=== PATIENT | male | born 1955 | race Two or more races ===

== ENCOUNTER 2024-10-26 08:59 | Day surgery (SDC) | payer MEDICARE, BC ==
[~2024-10-26] VITALS: Ht 190.5 cm; Wt 90.7 kg
[2024-10-26] MEDS ORDERED: BUPIVACAINE 0.5 % PF 150 MG/30 ML VIAL ONE (10:05)
[2024-10-26] MEDS ORDERED: LIDOCAINE 1%-EPI 1:100,000 20 ML VIAL ONE (10:05)
[2024-10-26] MEDS ORDERED: LIDOCAINE 1% INJ 50 ML MDV IJ ONE (10:05)
[2024-10-26] MEDS ORDERED: VANCOMYCIN 1 GM VIAL ONE (10:05)
[2024-10-26] MEDS ORDERED: MINERAL OIL 10 ML VIAL MC ONE (10:09)
[2024-10-26] MEDS ORDERED: FENTANYL PF 100MCG/2ML AMPUL ONE (10:59)
[2024-10-26 11:25] VITALS: BP 160/83; TEMP 98.3; O2SAT 99
[2024-10-26 12:00] VITALS: BP 160/83; TEMP 97.7; O2SAT 99
[2024-10-26] MEDS ORDERED: POTA-10 PO (15:42)
[2024-10-26] MEDS ORDERED: AMLO-213 PO (15:42)
[2024-10-26] MEDS ORDERED: METO-357 PO (15:42)
[2024-10-26] MEDS ORDERED: EMPA25TA PO (15:42)
[2024-10-26] MEDS ORDERED: DAPA10TA PO (15:42)
[2024-10-26] MEDS ORDERED: SEMA0.25 SQ (15:42)
[2024-10-26] MEDS ORDERED: METF500T PO (15:42)
[2024-10-26] MEDS ORDERED: ATOR40TA PO (15:42)
[2024-10-26] MEDS ORDERED: GLIM2TAB PO (15:42)
[2024-10-26] MEDS ORDERED: INSU100I30 SQ (15:42)
== END 2024-10-26 19:00 | disposition home or self-care (01) ==
LOC: DS 08:59 → UNDOADMIN 09:04 → MED 09:04 → UNDODISIN 13:30 → DS 19:00
PROVIDERS: ATTEND Podiatrist Foot & Ankle Surgery
DX: E11.621 Type 2 diabetes mellitus with foot ulcer (principal); L97.519 Non-pressure chronic ulcer of other part of right foot with unspecified severity; E11.51 Type 2 diabetes mellitus with diabetic peripheral angiopathy without gangrene; E11.42 Type 2 diabetes mellitus with diabetic polyneuropathy; I10 Essential (primary) hypertension; Z79.84 Long term (current) use of oral hypoglycemic drugs; Z79.899 Other long term (current) drug therapy; Z98.890 Other specified postprocedural states; Z88.8 Allergy status to other drugs, medicaments and biological substances
CPT/HCPCS: 15004; 15120; 82962; 87070; 87102; 87205; J0690; J2704; J3010; J3490; J7030; G0378; J3370